=== PATIENT | male | born 2000 | race Caucasian/White ===

== ENCOUNTER 2018-11-11 16:50 | Emergency (ER) | payer OTHER ==
--- NOTE | 2018-11-11 17:10 | EDM.PDOC ---
<Karen Rodriguez - Last Filed: 11/11/18 18:09> ED HPI GENERAL MEDICAL PROBLEM - General Chief Complaint: Abdominal Pain Stated Complaint: ABDOMINAL PAIN Time Seen by Provider: 11/11/18 17:01 Source of Information: Reports: Patient History Limitations: Reports: No Limitations - History of Present Illness INITIAL COMMENTS - FREE TEXT/NARRATIVE: 18 y/o male presents to emergency room with chief complaints of right lower quadrant pain for the past year. He states that while at work earlier today he felt this sharp stabbing pain in his lower side. Reports pain increases with movement. He did not evening for pain. Patient is being seen by his PCP and evaluated. He states that he recently gave her a stool specimen for evaluation. He reports that he has a appointment with the GI specialist on December 29. He denies any fever or chills. Denies any nausea vomiting or diarrhea or constipation. Onset Date: 10/23/17 Duration: Getting Worse Location: Reports: Abdomen, Other (rlq) Quality: Reports: Ache Improves with: Reports: None Worsens with: Reports: Movement (lifting items) Associated Symptoms: Reports: No Other Symptoms, Other (no diarrhea or constipation). Denies: Cough, Nausea/Vomiting, Shortness of Breath - Related Data Allergies Allergy/AdvReac Type Severity Reaction Status Date / Time No Known Allergies Allergy Verified 11/11/18 16:58 Home Meds: Home Meds Meloxicam 15 mg PO DAILY 11/11/18 [History] ED ROS GENERAL - Review of Systems Review Of Systems: See Below Constitutional: Denies: Fever, Chills, Night Sweats, Decreased Appetite, Weight Loss HEENT: Reports: No Symptoms Respiratory: Reports: No Symptoms Cardiovascular: Reports: No Symptoms Endocrine: Reports: No Symptoms GI/Abdominal: Reports: Abdominal Pain Musculoskeletal: Reports: No Symptoms Skin: Reports: No Symptoms Neurological: Reports: No Symptoms Psychiatric: Reports: No Symptoms Hematologic/Lymphatic: Reports: No Symptoms ED EXAM, GI/ABD - Physical Exam Exam: See Below Exam Limited By: No Limitations General Appearance: Alert, WD/WN, No Apparent Distress Respiratory/Chest: No Respiratory Distress, Lungs Clear, Normal Breath Sounds, No Accessory Muscle Use, Chest Non-Tender Cardiovascular: Normal Peripheral Pulses, Regular Rate, Rhythm, No Edema, No Gallop, No JVD, No Murmur, No Rub GI/Abdominal Exam: Normal Bowel Sounds, Soft, Non-Tender, No Organomegaly, No Distention, No Abnormal Bruit, No Mass, Other (pain is not reproducible with deep palpation.) Back Exam: Normal Inspection, Full Range of Motion Extremities: Normal Inspection, Normal Range of Motion, Non-Tender, No Pedal Edema, Normal Capillary Refill Neurological: Alert, Oriented, CN II-XII Intact, Normal Cognition, Normal Gait, Normal Reflexes, No Motor/Sensory Deficits Psychiatric: Normal Affect, Normal Mood Skin Exam: Warm, Dry, Intact, Normal Color, No Rash Lymphatic: No Adenopathy Course - Vital Signs Last Recorded V/S: Last Vital Signs Temp 36.9 C 11/11/18 18:27 Pulse 56 L 11/11/18 18:27 Resp 16 11/11/18 18:27 BP 121/61 11/11/18 18:27 Pulse Ox 99 11/11/18 18:27 - Orders/Labs/Meds Orders: Active Orders 24 hr Category Date Time Status KUB [Abdomen 1V Flat] [CR] Stat Exams 11/11/18 17:07 Taken Meds: Medications Discontinued Medications Generic Name Dose Route Start Last Admin Trade Name Freq PRN Reason Stop Dose Admin Lactulose 20 gm 11/11/18 18:13 11/11/18 18:24 Cephulac PO 11/11/18 18:14 20 gm ONETIME ONE Administration - Re-Assessments/Exams Free Text/Narrative Re-Assessment/Exam: 11/11/18 18:09 His pulmonary x-ray is consistent with constipation. I do not feel that he needs further blood studies or CAT scan at this time. I will discharge home with instructions to increase fiber and fluid intake. I will discharge home with MiraLAX. 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 Instructed patient to follow his PCP as needed. Encouraged to return to the emergency room for a nuclear symptoms. Departure - Departure Time of Disposition: 18:10 Disposition: Home, Self-Care 01 Condition: Good Clinical Impression: Abdominal pain Qualifiers: Abdominal location: right lower quadrant Qualified Code(s): R10.31 - Right lower quadrant pain Constipation Qualifiers: Constipation type: unspecified constipation type Qualified Code(s): K59.00 - Constipation, unspecified - Discharge Information *PRESCRIPTION DRUG MONITORING PROGRAM REVIEWED*: Not Applicable *COPY OF PRESCRIPTION DRUG MONITORING REPORT IN PATIENT [place]: Not Applicable Instructions: Constipation, Adult, Abdominal Pain, Adult, [id number] Referrals: Priscilla Hammer MATHEMATICAL STATISTICIAN [Primary Care Provider] - Forms: ED Department Discharge Additional Instructions: Your diagnosed with abdominal pain. I did not feel that your pain is related to your appendix. Your x-ray did reveal he had a moderate amount of stool in her colon and rectal area. I recommend that you use MiraLAX daily for the next month. You should also increase her fiber intake in her oral intake. Follow up with the electronic resources librarian as scheduled. Follow-up with your PCP as needed. Return to the emergency room for any new or acutely worsening symptoms. <Maria LuisaEthan shah - Last Filed: 11/11/18 19:38> ED HPI GENERAL MEDICAL PROBLEM Right Lower Abdomen Pain Score (Numeric/FACES): 9 Past Medical History Musculoskeletal History: Reports: Back Pain, Chronic Social & Family History - Tobacco Use Smoking Status *Q: Current Every Day Smoker Years of Tobacco use: 2 Packs/Tins Daily: 1 - Caffeine Use Caffeine Use: Reports: Coffee, Soda - Recreational Drug Use Recreational Drug Use: Yes Recreational Drug Type: Reports: Marijuana/Hashish Recreational Drug Use Frequency: Daily Course - Orders/Labs/Meds Meds: Medications Discontinued Medications Generic Name Dose Route Start Last Admin Trade Name Freq PRN Reason Stop Dose Admin Lactulose 20 gm 11/11/18 18:13 11/11/18 18:24 Cephulac PO 11/11/18 18:14 20 gm ONETIME ONE Administration - Radiology Interpretation Free Text/Narrative:: 18-year-old male presents the ED with intermittent abdominal pain for the better part of a year. He came to the ED today because of increased pain in the right lower quadrant of the abdomen which was quite sharp and stabbing. Examination revealed increased bowel sounds throughout the abdomen with a palpable right hemicolon on examination. Decision made in concert with CHARLES Rodrgiuez to just perform a flat plate of the abdomen to establish that he has asked significantly constipated. This as well as identified on KUB. I agree therefore with her treatment plan of bowel cleanse and then place him on MiraLAX powder 17 g or 1 scoop daily for the next month to see if his abdominal problems don't clear up. At this time he is scheduled to see gastroenterology with a colonoscopy etc. etc. Likely that no further investigations are required at this time. - Re-Assessments/Exams Free Text/Narrative Re-Assessment/Exam: 11/11/18 17:09 discussed this case with CHARLES Rodriguez--patient has a benign abdomen and reports pain intermittently for over a year just worse today. This strongly suggests that he likely has chronic constipation is the etiology of his chronic abdominal pain. We both agreed that a KUB to use to be done and then further investigations if the KUB is negative for constipation is clinically we suspect.
[2018-11-11] MEDS ORDERED: Lactulose Soln 10 GM/15 ML 30 ML UD Cup PO ONE (18:13)
--- NOTE | 2018-11-12 07:54 | CR ---
Abdomen: Supine view of the abdomen was obtained. Comparison: No previous study. Bowel gas pattern is normal. Calcification is seen within the right pelvis which is compatible with incidental phlebolith. No abnormal calcifications are otherwise seen. Bony structures are unremarkable. No soft tissue abnormality is seen. Impression: 1. Nothing acute is seen on supine abdominal x-ray. Diagnostic code #1
== END 2018-11-11 18:35 | disposition home or self-care (01) ==
LOC: JD.ED 16:50
DX: K59.00 Constipation, unspecified (principal); F17.210 Nicotine dependence, cigarettes, uncomplicated; Z79.899 Other long term (current) drug therapy
CPT/HCPCS: 74018; 99284; A9270; 99283

== ENCOUNTER 2022-09-21 18:34 | Emergency (ER) | payer OTHER ==
[2022-09-21] MEDS ORDERED: Ondansetron 4 MG/2 ML SDV IVPUSH ONE (19:27)
[2022-09-21] MEDS ORDERED: Morphine 2 MG/ML SYRINGE IVPUSH ONE (19:27)
[2022-09-21] MEDS ORDERED: Lactated Ringers 1,000 ML IV SCH (19:30)
[2022-09-21] MEDS ORDERED: Iopamidol 612 MG/ML 100 ML Bottle IVPUSH ONE (20:27)
[2022-09-21] MEDS ORDERED: Sodium Chloride 0.9% 10 ML Syringe FLUSH ONE (20:45)
[2022-09-21] MEDS ORDERED: Levofloxacin/Dextrose 5%-Water 750 MG in Premix Bag 1 BAG IV ONE (22:43)
[2022-09-21] MEDS ORDERED: metroNIDAZOLE/Normal Saline 500 MG in Premix Bag 1 BAG IV ONE (22:43)
[2022-09-22] MEDS ORDERED: Acetaminophen/HYDROcodone 325-5 MG Tab PO ONE (01:04)
[2022-09-22] MEDS ORDERED: Ondansetron 4 MG Tab.DIS PO ONE (01:04)
== END 2022-09-22 01:36 | disposition home or self-care (01) ==
LOC: JD.ED 18:34
DX: R10.31 Right lower quadrant pain (principal); R11.2 Nausea with vomiting, unspecified; R07.9 Chest pain, unspecified; Z72.0 Tobacco use; Z95.5 Presence of coronary angioplasty implant and graft
CPT/HCPCS: 36415; 74177; 80053; 81001; 83605; 83690; 85025; 85610; 85730; 87040; 96361; 96365; 96368; 96375; 99284; A9270; J1956; J2270; J2405; J3490; J7120; Q9967

== ENCOUNTER 2022-09-24 19:53 | Emergency (ER) | payer OTHER ==
[2022-09-24] MEDS ORDERED: Sodium Chloride 0.9% 1,000 ML IV ONE (21:15)
[2022-09-24] MEDS ORDERED: HYDROmorphone 1 MG/ML Syringe IVPUSH ONE (21:15)
[2022-09-24] MEDS ORDERED: Ondansetron 4 MG/2 ML SDV IVPUSH ONE (21:15)
== END 2022-09-24 23:25 | disposition home or self-care (01) ==
LOC: JD.ED 19:53
DX: R10.31 Right lower quadrant pain (principal); K86.89 Other specified diseases of pancreas; F17.210 Nicotine dependence, cigarettes, uncomplicated
CPT/HCPCS: 36415; 80053; 83690; 83735; 85007; 85027; 86140; 96361; 96374; 96375; 99284; J1170; J2405; J7030; 99283